=== PATIENT | female | born 1980 | race American Indian/Alaskan Native ===

== ENCOUNTER 2017-07-30 20:57 | Emergency (ER) | payer OTHER ==
[2017-07-30] MEDS ORDERED: ZOFRAN ODT PO ONE (21:39)
[2017-07-30] MEDS ORDERED: MOTRIN PO ONE (21:39)
[2017-07-30] MEDS ORDERED: MOTRIN ONE (21:40)
[2017-07-30] MEDS ORDERED: ZOFRAN ODT ONE (21:40)
[2017-07-30 22:22] LABS: Basophils % (Auto) 0.3 % (0.0-1.8); Eosinophils % (Auto) 0.1 % (0.0-4.3); Hematocrit 35.3 % (30.3-42.9); Hemoglobin 11.7 gm/dl (10.1-14.3); Mean Corpuscular HGB Conc 33 % (30-34); Mean Corpuscular Hemoglobin 26 pg (28-32); Mean Corpuscular Volume 80 fl (79-97); Platelet Count 275 K/mm3 (140-440); Red Blood Count 4.42 M/mm3 (3.65-5.03); Red Cell Distribution Width 14.4 % (13.2-15.2)
[2017-07-30 22:24] LABS: Anion Gap 20 mmol/L; BUN/Creatinine Ratio 17.14; Blood Urea Nitrogen 12 mg/dL (7-17); Carbon Dioxide 22 mmol/L (22-30); Chloride 97.4 mmol/L (98-107); Glucose 103 mg/dL (65-100); Potassium 3.1 mmol/L (3.6-5.0); Sodium 136 mmol/L (137-145)
--- NOTE | 2017-07-30 23:01 | XRay Report ---
FINAL REPORT EXAM: XR CHEST ROUTINE 2V HISTORY: Shortness of breath TECHNIQUE: 2 views of the chest. PRIORS: None. FINDINGS: The cardiomediastinal silhouette appears normal. The lungs are clear. The bones and soft tissues are unremarkable. IMPRESSION: No evidence of acute cardiopulmonary disease
[2017-07-30 23:18] LABS: Bacteria,Urine 1+ /HPF (Negative); Bilirubin,Urine NEG (Negative); Blood,Urine MOD (Negative); Ketones,Urine 20 mg/dL (Negative); Leukocyte Esterase,Urine NEG (Negative); Mucus,Urine FEW /HPF; Nitrite,Urine NEG (Negative); Protein,Urine <15 mg/dL mg/dL (Negative); Urobilinogen,Urine < 2.0 mg/dL (<2.0); WBC,Urine < 1.0 /HPF (0.0-6.0)
[2017-07-31 04:08] VITALS: BP 92/57
--- NOTE | 2017-07-31 04:56 | Emergency Department Report ---
ED General Adult HPI - General Chief complaint: Dyspnea/Respdistress Stated complaint: GENERAL WEAKNESS Time Seen by Provider: 07/31/17 04:51 Source: patient, family, EMS Mode of arrival: Wheelchair Limitations: Other - History of Present Illness Initial comments: Patient is a 36-year-old female with past medical history who presents with shortness of breath and weakness. Her symptoms are moderate pain occurred today they've been gradual in onset. Patient states that while she was at work she's been having cough weakness and fatigue. She states that she became short of breath with exertion. She states that she doesn't feel like her lungs are short of breath but she feels like it's her body. She also states that she has some body aches and pains 4 out of 10 headache pain radiates to her body nothing makes it better or worse. Patient states that she feels nauseous but hasn't vomited today. Her son has recently been sick today. She is also complaining of a tingly feeling in her hands. Severity scale (0 -10): 8 - Related Data Previous Rx's Medication Instructions Recorded Last Taken Type Phenylephrine/Dm/Acetaminop/GG 1 each PO Q6HR #20 tablet 07/31/17 Unknown Rx [Tylenol Cold & Flu Severe Cplt] Allergies Allergy/AdvReac Type Severity Reaction Status Date / Time No Known Allergies Allergy Verified 07/31/17 04:05 ED Review of Systems ROS: Stated complaint: GENERAL WEAKNESS Other details as noted in HPI Constitutional: fever, malaise. denies: chills Eyes: denies: eye pain, eye discharge, vision change ENT: denies: ear pain, throat pain Respiratory: cough, shortness of breath, SOB at rest. denies: wheezing Cardiovascular: denies: chest pain, palpitations Endocrine: no symptoms reported Gastrointestinal: nausea. denies: abdominal pain, diarrhea Genitourinary: denies: urgency, dysuria, discharge Musculoskeletal: denies: back pain, joint swelling, arthralgia Skin: denies: rash, lesions Neurological: paresthesias. denies: headache, weakness Psychiatric: denies: anxiety, depression Hematological/Lymphatic: denies: easy bleeding, easy bruising ED Past Medical Hx - Past Medical History Previous Medical History?: No - Surgical History Additional Surgical History: C section x 1 - Social History Smoking Status: Never Smoker - Medications Home Medications: Home Medications Medication Instructions Recorded Confirmed Last Taken Type Phenylephrine/Dm/Acetaminop/GG 1 each PO Q6HR #20 tablet 07/31/17 Unknown Rx [Tylenol Cold & Flu Severe Cplt] ED Physical Exam - General Limitations: Other General appearance: alert, in no apparent distress - Head Head exam: Present: atraumatic, normocephalic - Eye Eye exam: Present: normal appearance - ENT ENT exam: Present: mucous membranes moist - Neck Neck exam: Present: normal inspection - Respiratory Respiratory exam: Present: normal lung sounds bilaterally. Absent: respiratory distress - Cardiovascular Cardiovascular Exam: Present: regular rate, normal rhythm. Absent: systolic murmur, diastolic murmur, rubs, gallop - GI/Abdominal GI/Abdominal exam: Present: soft, normal bowel sounds - Extremities Exam Extremities exam: Present: normal inspection - Back Exam Back exam: Present: normal inspection - Neurological Exam Neurological exam: Present: alert, oriented X3 - Psychiatric Psychiatric exam: Present: normal affect, normal mood - Skin Skin exam: Present: warm, dry, intact, normal color. Absent: rash ED Course Vital Signs 07/30/17 07/30/17 07/31/17 21:18 21:44 01:31 Temperature 101.6 F H 98.4 F Pulse Rate 125 H 81 Respiratory 20 20 18 Rate Blood Pressure 121/74 104/61 Blood Pressure [Left] O2 Sat by Pulse 100 100 Oximetry 07/31/17 04:00 Temperature Pulse Rate 85 Respiratory 20 Rate Blood Pressure Blood Pressure 92/57 [Left] O2 Sat by Pulse 100 Oximetry - Reevaluation(s) Reevaluation #1: 07/31/17 04:58 Patient states that she is feeling better all by a work note for the patient. ED Medical Decision Making - Lab Data Result diagrams: 07/30/17 21:52 07/30/17 21:52 Lab Results 07/30/17 07/30/17 07/30/17 Range/Units 21:52 21:52 21:52 WBC 13.0 H (4.5-11.0) K/mm3 RBC 4.42 (3.65-5.03) M/mm3 Hgb 11.7 (10.1-14.3) gm/dl Hct 35.3 (30.3-42.9) % MCV 80 (79-97) fl MCH 26 L (28-32) pg MCHC 33 (30-34) % RDW 14.4 (13.2-15.2) % Plt Count 275 (140-440) K/mm3 Lymph % (Auto) 11.7 L (13.4-35.0) % [place] % (Auto) 4.7 (0.0-7.3) % Eos % (Auto) 0.1 (0.0-4.3) % Baso % (Auto) 0.3 (0.0-1.8) % Lymph # 1.5 (1.2-5.4) K/mm3 [place] # 0.6 (0.0-0.8) K/mm3 Eos # 0.0 (0.0-0.4) K/mm3 Baso # 0.0 (0.0-0.1) K/mm3 Seg Neutrophils % 83.2 H (40.0-70.0) % Seg Neutrophils # 10.8 H (1.8-7.7) K/mm3 Sodium 136 L (137-145) mmol/L Potassium 3.1 L (3.6-5.0) mmol/L Chloride 97.4 L (98-107) mmol/L Carbon Dioxide 22 (22-30) mmol/L Anion Gap 20 mmol/L BUN 12 (7-17) mg/dL Creatinine 0.7 (0.7-1.2) mg/dL Estimated GFR > 60 ml/min BUN/Creatinine Ratio 17.14 % Glucose 103 H (65-100) mg/dL Calcium 9.0 (8.4-10.2) mg/dL Troponin T < 0.010 (0.00-0.029) ng/mL HCG, Qual Negative (Negative) Urine Color (Yellow) Urine Turbidity (Clear) Urine pH (5.0-7.0) Ur Specific [place] (1.003-1.030) Urine Protein (Negative) mg/dL Urine Glucose (UA) (Negative) mg/dL Urine Ketones (Negative) mg/dL Urine Blood (Negative) Urine Nitrite (Negative) Urine Bilirubin (Negative) Urine Urobilinogen (<2.0) mg/dL Ur Leukocyte Esterase (Negative) Urine WBC (Auto) (0.0-6.0) /HPF Urine RBC (Auto) (0.0-6.0) /HPF U Epithel Cells (Auto) (0-13.0) /HPF Urine Bacteria (Auto) (Negative) /HPF Urine Mucus /HPF 07/30/17 Range/Units 22:24 WBC (4.5-11.0) K/mm3 RBC (3.65-5.03) M/mm3 Hgb (10.1-14.3) gm/dl Hct (30.3-42.9) % MCV (79-97) fl MCH (28-32) pg MCHC (30-34) % RDW (13.2-15.2) % Plt Count (140-440) K/mm3 Lymph % (Auto) (13.4-35.0) % [place] % (Auto) (0.0-7.3) % Eos % (Auto) (0.0-4.3) % Baso % (Auto) (0.0-1.8) % Lymph # (1.2-5.4) K/mm3 [place] # (0.0-0.8) K/mm3 Eos # (0.0-0.4) K/mm3 Baso # (0.0-0.1) K/mm3 Seg Neutrophils % (40.0-70.0) % Seg Neutrophils # (1.8-7.7) K/mm3 Sodium (137-145) mmol/L Potassium (3.6-5.0) mmol/L Chloride (98-107) mmol/L Carbon Dioxide (22-30) mmol/L Anion Gap mmol/L BUN (7-17) mg/dL Creatinine (0.7-1.2) mg/dL Estimated GFR ml/min BUN/Creatinine Ratio % Glucose (65-100) mg/dL Calcium (8.4-10.2) mg/dL Troponin T (0.00-0.029) ng/mL HCG, Qual (Negative) Urine Color Yellow (Yellow) Urine Turbidity Clear (Clear) Urine pH 7.0 (5.0-7.0) Ur Specific [place] 1.017 (1.003-1.030) Urine Protein <15 mg/dl (Negative) mg/dL Urine Glucose (UA) Neg (Negative) mg/dL Urine Ketones 20 (Negative) mg/dL Urine Blood Mod (Negative) Urine Nitrite Neg (Negative) Urine Bilirubin Neg (Negative) Urine Urobilinogen < 2.0 (<2.0) mg/dL Ur Leukocyte Esterase Neg (Negative) Urine WBC (Auto) < 1.0 (0.0-6.0) /HPF Urine RBC (Auto) 9.0 (0.0-6.0) /HPF U Epithel Cells (Auto) 1.0 (0-13.0) /HPF Urine Bacteria (Auto) 1+ (Negative) /HPF Urine Mucus Few /HPF - EKG Data -: EKG Interpreted by Me - EKG Data 07/31/17 04:54 EKG shows sinus tachycardia no ST segment elevations or T-wave inversions. - Radiology Data Radiology results: report reviewed, image reviewed Chest x-ray: Shows no acute cardiopulmonary disease - Medical Decision Making Chief medical diagnosis: Viral syndrome Differential medical diagnosis: Pneumonia, strep, hypokalemia, hyponatremia I will get CBC, CMP, IV fluids, IV antiemetics, oral ibuprofen and a chest x-ray Patient is feeling better after symptomatic treatment considering her history and her laboratory findings patient most likely has a viral syndrome. I'll give patient some days off work and some Tylenol flu. Patient recently plan additional verbal discharge instructions were given. Critical care attestation.: If time is entered above; I have spent that time in minutes in the direct care of this critically ill patient, excluding procedure time. ED Disposition Clinical Impression: Viral illness, Weakness, Shortness of breath Disposition: DC-01 TO HOME OR SELFCARE Is pt being admited?: No Does the pt Need Aspirin: No Condition: Stable Instructions: Viral Syndrome (ED), Weakness (ED) Prescriptions: Phenylephrine/Dm/Acetaminop/GG [Tylenol Cold & Flu Severe Cplt] 1 each PO Q6HR # 20 tablet Referrals: PRIMARY CARE, [Primary Care Provider] - 3-5 Days Forms: Work/School Release Form(ED)
== END 2017-07-31 05:00 | disposition home or self-care (01) ==
LOC: ED 20:57
DX: B34.9 Viral infection, unspecified (principal); R06.02 Shortness of breath; R53.1 Weakness
CPT/HCPCS: 36415; 71020; 80048; 81001; 84484; 84703; 85025; 87116; 87430; 93005; 93010; Q0162